=== PATIENT | female | born 1990 | race Caucasian/White ===

== ENCOUNTER → 2016-10-30 | Outpatient (REF) | payer MEDICAID ==
[~2016-10-30] MED LIST: *ANUSOI RE; ACET500C OR; COLA100C2 OR; IBUP600T OR; MILKSUS OR; PRENTAB8 PO
[2016-10-30 13:27] LABS: MEAN CORPUSCULAR HEMOGLOBIN 30.1 pg (27.0-33.0); MEAN CORPUSCULAR HGB CONC 33.8 g/dl (32.0-36.5); MEAN CORPUSCULAR VOLUME 89.2 fl (80.0-96.0); RED CELL DISTRIBUTION WIDTH 12.1 % (11.5-14.5); WHITE BLOOD COUNT 13.9 K/mm3 (4.0-10.0)
[2016-10-30 14:02] LABS: HCG, SERUM QUANTITATIVE 114485 MIU/ML
[2016-10-31 11:40] LABS: HBsAg Prenatal NEGATIVE (NEGATIVE)
[2016-10-31 14:07] LABS: HIV SCRN NEGATIVE (NEGATIVE)
[2016-10-31 14:08] LABS: CONTROL LINE INT CTR LINE PRESENT; HIV SCRN1 NEGATIVE (NEGATIVE)
== END ==
LOC: M LAB REF 12:55
PROVIDERS: ATTEND Advanced Practice Midwife
DX: O36.80X0 Pregnancy with inconclusive fetal viability, not applicable or unspecified (principal); Z36 Encounter for antenatal screening of mother; Z3A.00 Weeks of gestation of pregnancy not specified

== ENCOUNTER → 2016-12-25 | Outpatient (REF) | payer OTHER | LOC: M LAB REF 13:05 | PROVIDERS: ATTEND Advanced Practice Midwife | DX: Z34.82 Encounter for supervision of other normal pregnancy, second trimester (principal) ==

== ENCOUNTER → 2017-01-15 | Outpatient (CLI) | payer OTHER ==
--- NOTE | 2017-01-16 04:38 | REP ---
Clinical: Anatomical evaluation. Comparison: None . Findings: Examination demonstrates a single live intrauterine in cephalic presentation. motion is identified by technologist. Placenta is noted posteriorly and grade zero without evidence for placenta previa or abruption. Amniotic fluid volume is normal. Cervix measures 4.1 cm in length and appears closed. No evidence for nuchal cord. Gestational age by LMP 19 weeks 4 days with SHERIF 06/07/2017 . Gestational age by current measurements 19 weeks 6 days with SHERIF 06/05/2017 . FHR equals 116 beats per minute. BPD 4.4 cm 19 weeks 3 days HC 16.7 cm 19 weeks 3 days AC 14.6 cm 19 weeks 6 days FL 3.3 cm 20 weeks 1 day HL 3.2 cm 20 weeks 5 days HC/AC ratio 1.15 Estimated weight 321 grams ( 58th percentile). Anatomical assessment demonstrates normal structures including cranium, choroid plexus, cavum, cerebellum/posterior fossa, facial features, lungs, four-chamber heart/ventricular outflow tracts, diaphragm, stomach, cord insertion/three-vessel cord, kidneys/bladder, spine, and extremities. Impression: Single live intrauterine in cephalic presentation demonstrating appropriate interval growth. Anatomical assessment is complete and normal. Signed by Karlo Lemus MD 01/16/2017 04:30 A
== END ==
LOC: M RAD 13:19
PROVIDERS: ATTEND Advanced Practice Midwife
DX: Z34.82 Encounter for supervision of other normal pregnancy, second trimester (principal)

== ENCOUNTER → 2017-01-22 | Outpatient (REF) | payer OTHER | LOC: M LAB REF 12:43 | PROVIDERS: ATTEND Advanced Practice Midwife | DX: Z34.82 Encounter for supervision of other normal pregnancy, second trimester (principal) ==

== ENCOUNTER → 2017-02-19 | Outpatient (REF) | payer OTHER | LOC: M LAB REF 12:04 | PROVIDERS: ATTEND Advanced Practice Midwife | DX: Z34.82 Encounter for supervision of other normal pregnancy, second trimester (principal) ==

== ENCOUNTER → 2017-03-04 | Outpatient (CLI) | payer OTHER ==
[~2017-03-04] MED LIST changes: +ACET50TA PO; +IBUP-1114 PO; +KEFL500C17 PO; +NYST5000 PO; +PREN1CHW4 PO; +PYRI1TAB5 PO; +VALT1TAB PO
[2017-03-04 12:00] LABS: MEAN CORPUSCULAR HEMOGLOBIN 31.1 pg (27.0-33.0); MEAN CORPUSCULAR HGB CONC 34.1 g/dl (32.0-36.5); MEAN CORPUSCULAR VOLUME 91.2 fl (80.0-96.0); RED CELL DISTRIBUTION WIDTH 12.4 % (11.5-14.5); WHITE BLOOD COUNT 15.2 K/mm3 (4.0-10.0)
== END ==
LOC: M LAB 10:09
PROVIDERS: ATTEND Advanced Practice Midwife
DX: Z34.82 Encounter for supervision of other normal pregnancy, second trimester (principal)

== ENCOUNTER 2017-04-01 12:56 | Outpatient (CLI) | payer OTHER ==
[~2017-04-01] VITALS: Ht 162.6 cm; Wt 64.0 kg
[~2017-04-01 12:56] MED LIST changes: -ACET50TA PO; -IBUP-1114 PO; -KEFL500C17 PO; -NYST5000 PO; -PREN1CHW4 PO; -PYRI1TAB5 PO; -VALT1TAB PO
[2017-04-01 13:12] VITALS: BP 107/65
[2017-04-01] MEDS ORDERED: PREN1CHW4 PO (13:18)
[2017-04-01] MEDS ORDERED: LIDOCAINE 1% SDV 5 ML VIAL SC ONE (14:00)
[2017-04-01] MEDS ORDERED: LIDOCAINE 1% SDV 5 ML VIAL XX ONE (14:00)
[2017-04-01] MEDS ORDERED: cefTRIAXone SOD 1 GM VIAL (J0696) IM ONE (14:00)
[2017-04-01 15:42] VITALS: BP 104/59
[2017-04-01 16:57] VITALS: BP 92/51
[2017-04-01 17:39] VITALS: BP 109/56
[2017-04-01] MEDS ORDERED: KEFL500C17 PO (17:47)
== END 2017-04-01 17:47 | disposition home or self-care (01) ==
LOC: M LDO 12:56
PROVIDERS: ATTEND Obstetrics & Gynecology
DX: O99.89 Other specified diseases and conditions complicating pregnancy, childbirth and the puerperium (principal); Z3A.30 30 weeks gestation of pregnancy; N39.0 Urinary tract infection, site not specified; M25.551 Pain in right hip

== ENCOUNTER → 2017-04-02 | Outpatient (REF) | payer OTHER ==
[~2017-04-02] MED LIST changes: +ACET50TA PO; +IBUP-1114 PO; +KEFL500C17 PO; +NYST5000 PO; +PREN1CHW4 PO; +PYRI1TAB5 PO; +VALT1TAB PO
== END ==
LOC: M LAB REF 12:35
PROVIDERS: ATTEND Advanced Practice Midwife
DX: Z34.83 Encounter for supervision of other normal pregnancy, third trimester (principal); Z3A.00 Weeks of gestation of pregnancy not specified

== ENCOUNTER → 2017-05-12 | Outpatient (REF) | payer OTHER | LOC: M LAB REF 16:40 | PROVIDERS: ATTEND Advanced Practice Midwife | DX: Z34.83 Encounter for supervision of other normal pregnancy, third trimester (principal) ==

== ENCOUNTER 2017-06-03 21:56 | Inpatient (IN) | payer OTHER ==
[~2017-06-03] VITALS: Ht 162.6 cm; Wt 66.8 kg
[~2017-06-03 21:56] MED LIST changes: -ACET50TA PO; -IBUP-1114 PO; -NYST5000 PO; -PYRI1TAB5 PO; -VALT1TAB PO
[2017-06-03 22:22] VITALS: BP 116/67
[2017-06-03] MEDS ORDERED: LACTATED RINGER'S 1000 ML IV STA (22:32)
[2017-06-03] MEDS ORDERED: PYRI1TAB5 PO (22:58)
[2017-06-03] MEDS ORDERED: NYST5000 PO (22:58)
[2017-06-03] MEDS ORDERED: VALT1TAB PO (22:58)
[2017-06-03] MEDS ORDERED: KEFL500C17 PO (22:59)
[2017-06-03 23:27] LABS: MEAN CORPUSCULAR HEMOGLOBIN 27.8 pg (27.0-33.0); MEAN CORPUSCULAR HGB CONC 32.3 g/dl (32.0-36.5); MEAN CORPUSCULAR VOLUME 85.9 fl (80.0-96.0); RED CELL DISTRIBUTION WIDTH 13.8 % (11.5-14.5); WHITE BLOOD COUNT 13.9 10^3/uL (4.0-10.0)
[2017-06-03] MEDS: LR 1,000 ML IV SCH (23:30)
[2017-06-04] VITALS (36 sets, daily range): BP systolic 83–114; BP diastolic 46–75
[2017-06-04] MEDS ORDERED: OXYTOCIN DRIP 30 UNITS in APPROPRIATE DILUENT 1 EA IV SCH ×2
[2017-06-04] MEDS ORDERED: FENTANYL 2MCG/ML ROPIVACAINE 0.2% IN 0.9% NACL 200ML IVBAG As Ordered ONE (00:56)
[2017-06-04] MEDS ORDERED: EPIDURAL/PCA KEYS XX PRN (01:45)
[2017-06-04] MEDS ORDERED: FENTANYL/ROPIVACAINE/NACL BAG 200 ML EPIDURAL SCH (01:45)
[2017-06-04] MEDS ORDERED: NALOXONE INJ 0.4 MG/1 ML VIAL (J2310) IV PRN (01:45)
[2017-06-04] MEDS ORDERED: ePHEDrine SULFATE 25 MG/5 ML(5MG/ML) SYRINGE IV PRN (01:45)
[2017-06-04] MEDS ORDERED: LACTATED RINGER'S 1000 ML IV PRN (01:45)
[2017-06-04] MEDS ORDERED: diphenhydrAMINE INJ 50MG/ML VIAL (J1200) IV PRN (01:45)
[2017-06-04] MEDS ORDERED: EPIDURAL COMMENT XX SCH (01:45)
[2017-06-04] MEDS ORDERED: ONDANSETRON 4MG/2ML VIAL (J2405) IV PRN (01:45)
[2017-06-04] MEDS ORDERED: REFRIGERATOR IV KEYS XX PRN (01:45)
[2017-06-04] MEDS: LR 1,000 ML IV SCH (01:48)
[2017-06-04] MEDS ORDERED: LIDOCAINE 1% MDV INJ 50 ML VIAL As Ordered ONE (02:59)
[2017-06-04] MEDS ORDERED: MEASLES,MUMPS,RUBELLA VACCINE INJ (MMR-II) (90707) SC SCH (06:15)
[2017-06-04] MEDS ORDERED: DOCUSATE SODIUM 100 MG CAP PO PRN (06:15)
[2017-06-04] MEDS ORDERED: METHYLERGONOVINE MALEATE 0.2 MG TAB PO PRN (06:15)
[2017-06-04] MEDS ORDERED: IBUPROFEN 800 MG TAB PO PRN (06:15)
[2017-06-04] MEDS ORDERED: RHOGAM 300 MCG (1500 IU) INJ (J2790) IM SCH (06:15)
[2017-06-04] MEDS ORDERED: ACETAMINOPHEN 500 MG TAB PO PRN (06:15)
[2017-06-04] MEDS ORDERED: DIBUCAINE 1% OINTMENT 30GM TOP PRN (06:15)
[2017-06-04 06:29] LABS: CORD GAS ABE V -3.3; CORD GAS HCO3 V 23.8 MEQ/L; CORD GAS O2 SAT V 78.6 %; CORD GAS PCO2 V 50.1 mmHg; CORD GAS PH V 7.295 UNITS; CORD GAS SBC V 21.2 MEQ/L; CORD GAS TCO2 V 25.4 MEQ/L
[2017-06-04 06:33] LABS: CORD GAS ABE A -4.9; CORD GAS HCO3 A 23.7 MEQ/L; CORD GAS O2 SAT A 30.1 %; CORD GAS PCO2 A 57.5 mmHg; CORD GAS PH A 7.233 UNITS; CORD GAS PO2 A 14.2 mmHg; CORD GAS SBC A 18.8 MEQ/L; CORD GAS TCO2 A 25.5 MEQ/L
--- NOTE | 2017-06-04 06:45 | HPE ---
DATE OF ADMISSION: 06/03/2017 HISTORY OF PRESENT ILLNESS: Shauna is a 27-year-old female 3, para 2-0-0-2, with an estimated date of confinement (EDC) of 06/07/2017, estimated gestational age (EGA) 39-4/7 weeks gestation, who presented to labor and delivery with complaints of contractions. Upon evaluation in labor and delivery, she was found to be in early labor. The patient was originally scheduled for an induction. At this point, decision was made to admit the patient. Her records reviewed. LABORATORIES: Blood type is A positive, rubella immune, hepatitis negative, HIV negative, GC chlamydia negative. The patient had a history of positive Trichomonas for which she had a test of cure on 01/12 and now is negative. The patient also had positive drug screen on 12/25 for marijuana. GBS is negative. PAST MEDICAL HISTORY: Denies. PAST SURGICAL HISTORY: Dilation and curettage (D and C). SOCIAL HISTORY: The patient is single. Denies any alcohol. She is a current smoker; smokes approximately a half pack of cigarettes per day, and has used marijuana in the past. Reported to have quit. MEDICATIONS: vitamin. 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 No current outbreak during this . ALLERGIES: No known drug allergy. PHYSICAL EXAMINATION: Normal-appearing female in no acute distress. ABDOMEN: Soft, nontender, nondistended. EXTREMITIES: No clubbing, cyanosis or edema. VAGINAL EXAMINATION: She is 4 cm, 100% effaced, fetus at -2 station. Tracing reviewed, category one tracing, with contractions every 4-5 minutes. ASSESSMENT: 1. Intrauterine at 39-4/7 weeks gestation. 2. In Early labor. 3. Group B streptococcus (GBS) negative. PLAN: Admit to labor and delivery. Routine labs sent. Anticipate delivery.
[2017-06-04] MEDS: PRENATAL VITAMINS CHEWABLE TABLET PO SCH (09:00)
--- NOTE | 2017-06-04 10:06 | DN ---
DATE OF CONSULTATION: 06/04/2017 Shauna is a 27-year-old female, 3, para 2-0-0-2, who was admitted at 39-4/7 weeks gestation in labor. She underwent artificial rupture of membranes and Pitocin augmentation, progressed to fully dilated, delivered a live male infant in left occiput anterior position with a nuchal cord over an intact perineum. scores of 8 and 9. weight 5 pounds 15 ounces. Placenta delivered spontaneously intact. Three-vessel cord. The perineum, vagina and cervix inspected. No laceration noted. Estimated blood loss 250 mL. Both mother and baby in stable condition.
[2017-06-05 05:55] VITALS: BP 95/55
[2017-06-05] MEDS: PRENATAL VITAMINS CHEWABLE TABLET PO SCH (07:29)
[2017-06-05] MEDS ORDERED: medroxyPROGESTERone ACET IM SUSP 150 MG/ML VIAL (J1050) IM ONE (09:00)
[2017-06-05 18:17] VITALS: BP 108/58
[2017-06-06 06:11] VITALS: BP 98/57
[2017-06-06] MEDS ORDERED: medroxyPROGESTERone ACET IM SUSP 150 MG/ML VIAL (J1050) IM ONE (09:00)
[2017-06-06] MEDS ORDERED: ACET50TA PO (09:29)
[2017-06-06] MEDS ORDERED: IBUP-1114 PO (09:29)
[2017-06-06] MEDS: PRENATAL VITAMINS CHEWABLE TABLET PO SCH (09:51)
== END 2017-06-06 12:25 | disposition home or self-care (01) | DRG 560 ==
LOC: M LDO 21:56 → M LDI 22:33 → M OBS 06-04 08:19
PROVIDERS: ADMIT Obstetrics & Gynecology; ATTEND Obstetrics & Gynecology
PROC: 10E0XZZ Delivery of Products of Conception, External Approach (ICD-10-PCS; principal; 2017-06-04)
PROC: 10907ZC Drainage of Amniotic Fluid, Therapeutic from Products of Conception, Via Natural or Artificial Opening (ICD-10-PCS; 2017-06-04)
DX: O99.334 Smoking (tobacco) complicating childbirth (principal); F17.200 Nicotine dependence, unspecified, uncomplicated; O69.82X0 Labor and delivery complicated by other cord entanglement, without compression, not applicable or unspecified; Z3A.39 39 weeks gestation of pregnancy

== ENCOUNTER 2017-07-24 09:57 | Day surgery (SDC) | payer OTHER ==
[~2017-07-24] VITALS: Ht 162.6 cm; Wt 60.6 kg
[~2017-07-24 09:57] MED LIST changes: +ACET50TA PO; +IBUP-1114 PO; +NYST5000 PO; +PYRI1TAB5 PO; +VALT1TAB PO
[2017-07-24] MEDS ORDERED: LR 1,000 ML IV ONE (10:00)
[2017-07-24 10:41] LABS: MEAN CORPUSCULAR HEMOGLOBIN 27.1 pg (27.0-33.0); MEAN CORPUSCULAR HGB CONC 32.2 g/dl (32.0-36.5); MEAN CORPUSCULAR VOLUME 84.1 fl (80.0-96.0); PLATELET COUNT, AUTOMATED 326 10^3/uL (150-450); RED CELL DISTRIBUTION WIDTH 15.5 % (11.5-14.5); WHITE BLOOD COUNT 11.7 10^3/uL (4.0-10.0)
[2017-07-24 11:06] LABS: CONTROL LINE HCG INT CTR LINE PRESENT
[2017-07-24] MEDS ORDERED: BUPIVACAINE/EPIN 0.25% 30 ML VIAL As Ordered ONE (11:54)
[2017-07-24] MEDS ORDERED: ACETAMINOPHEN 650 MG SUPP As Ordered ONE (11:54)
[2017-07-24] MEDS ORDERED: PERC5TAB12 PO (12:14)
[2017-07-24] MEDS ORDERED: fentaNYL 100 MCG/2 ML INJECTION (J3010) As Ordered ONE (12:27)
[2017-07-24] MEDS ORDERED: MIDAZOLAM INJ 2 MG/2 ML VIAL (J2250) As Ordered ONE (12:27)
[2017-07-24] MEDS ORDERED: ePHEDrine SULFATE 25 MG/5 ML(5MG/ML) SYRINGE As Ordered ONE (12:35)
[2017-07-24] MEDS ORDERED: PHENYLephrine HCL 500 MCG/5 ML (100MCG/ML) SYRINGE (J2370) As Ordered ONE (12:35)
[2017-07-24] MEDS ORDERED: ROCURONIUM BROMIDE 50 MG/5 ML VIAL/SYRINGE As Ordered ONE (12:35)
[2017-07-24] MEDS ORDERED: dexameTHASONE 4 MG/ML 1ML VIAL (J1100) As Ordered ONE (12:35)
[2017-07-24] MEDS ORDERED: PROPOFOL 200 MG/20 ML VIAL As Ordered ONE (12:35)
[2017-07-24] MEDS ORDERED: GLYCOPYRROLATE INJ 0.2 MG/ML 2 ML VIAL As Ordered ONE ×2 (12:36→12:39)
[2017-07-24] MEDS ORDERED: NEOSTIGMINE 10 MG/10 ML VIAL (J2710) As Ordered ONE (12:36)
[2017-07-24] MEDS ORDERED: ONDANSETRON 4MG/2ML VIAL (J2405) As Ordered ONE (12:36)
[2017-07-24] MEDS ORDERED: KETOROLAC 60 MG/2 ML VIAL (J1885) As Ordered ONE ×2 (12:37→13:38)
[2017-07-24] MEDS ORDERED: HYDROmorphone HCL 2 MG/ML 1ML VIAL (J1170) As Ordered ONE (12:39)
[2017-07-24] MEDS ORDERED: diphenhydrAMINE INJ 50MG/ML VIAL (J1200) As Ordered ONE (12:49)
[2017-07-24] MEDS ORDERED: METOCLOPRAMIDE INJ 10MG/2ML VIAL (J2765) As Ordered ONE (12:49)
[2017-07-24] MEDS ORDERED: PERCOCET 5MG/325MG TAB PO PRN (13:15)
[2017-07-24] MEDS ORDERED: ONDANSETRON 4MG/2ML VIAL (J2405) IV PRN (13:15)
[2017-07-24] MEDS ORDERED: LR 1,000 ML IV SCH (13:15)
[2017-07-24] MEDS: fentaNYL 100 MCG/2 ML INJECTION (J3010) IV PRN ×4 (13:20→13:35)
[2017-07-24] MEDS ORDERED: LIDOCAINE 2% INJ 100 MG/5 ML SDV (FOR ANES.) As Ordered ONE (13:30)
[2017-07-24] MEDS: PERCOCET 5MG/325MG TAB PO PRN ×2 (13:45→14:05)
[2017-07-24 14:45] VITALS: BP 124/73
--- NOTE | 2017-07-24 17:50 | RO ---
DATE OF PROCEDURE: 07/24/2017 Shauna is a 27-year-old female multiparous. She desires permanent tubal sterilization. After extensive counseling in the office and reviewing the risks and benefits of tubal ligation, the patient decided to proceed with bilateral tubal ligation via a laparoscopic approach. PREOPERATIVE DIAGNOSIS: Multiparity, desires permanent tubal sterilization. POSTOPERATIVE DIAGNOSIS: Multiparity, desires permanent tubal sterilization. PROCEDURE: Laparoscopic bilateral tubal ligation using Filshie clip. SURGEON: Dr. Jerry Cornell KNIFER UP: ANESTHESIA: General. COMPLICATIONS: None. ESTIMATED BLOOD LOSS: Less than 10 mL. DESCRIPTION OF PROCEDURE: After re-visiting the patient in the holding area and reaffirming the informed consent, the patient was taken to the operating room where under general anesthesia she was then draped and prepped in the usual sterile fashion in the dorsal lithotomy position. Straight catheter of the bladder was performed for approximately 200cc. A sponge stick was placed in the vagina for uterine manipulation. I then turned my attention to the abdomen where a 5 mm infraumbilical incision was made. Using the Veress needle, the abdomen was insufflated with CO2 gas to approximately 3.5 liters. We then placed a 5 mm Xcel trocar as well as the laparoscope under direct visualization. Then, an 8 mm right lateral port was placed. The patient was placed in Trendelenburg. Pelvis inspected. Bilateral fallopian tube identified with the fimbriated end. At this point, a Filshie clip was applied 2 cm away from the cornual area on each tube. Excellent hemostasis was noted. Pelvis copiously irrigated with normal saline and suctioned out. All instruments removed, and the laparoscopic ports were closed using Dermabond. 0.25% Marcaine was placed at the operative site for postoperative pain. The patient tolerated the procedure well, and she was then transferred to the recovery room in stable condition. Copy To: [facility] HOSPITALMarylin
[2017-07-24] MEDS ORDERED: IBUPROFEN 800 MG TAB PO SCH (19:00)
== END 2017-07-24 15:00 | disposition home or self-care (01) ==
LOC: M SDC 09:57
PROVIDERS: ATTEND Obstetrics & Gynecology
DX: Z30.2 Encounter for sterilization (principal); F17.210 Nicotine dependence, cigarettes, uncomplicated

== ENCOUNTER → 2017-11-10 | Outpatient (REF) | payer OTHER ==
[2017-11-10 19:23] LABS: HEMATOCRIT 41.8 % (36.0-47.0); HEMOGLOBIN 13.8 g/dl (12.0-16.0); MEAN CORPUSCULAR HEMOGLOBIN 28.7 pg (27.0-33.0); MEAN CORPUSCULAR VOLUME 86.9 fl (80.0-96.0); PLATELET COUNT, AUTOMATED 315 10^3/uL (150-450); RED BLOOD COUNT 4.81 10^6/uL (4.00-5.40); RED CELL DISTRIBUTION WIDTH 12.3 % (11.5-14.5); WHITE BLOOD COUNT 11.2 10^3/uL (4.0-10.0)
[2017-11-10 19:38] LABS: LUTEINIZING HORMONE 5.6 mIU/mL
[2017-11-10 19:39] LABS: FOLLICLE STIMULATING HORMONE 8.4 mIU/mL; FREE T4 1.07 NG/DL (0.76-1.46)
[2017-11-11 07:02] LABS: HCG, SERUM QUANTITATIVE < 1.0 MIU/ML
== END ==
LOC: M LAB REF 17:24
DX: N92.1 Excessive and frequent menstruation with irregular cycle (principal)

== ENCOUNTER → 2017-12-24 | Outpatient (REF) | payer OTHER ==
[2017-12-24 18:21] LABS: HEMATOCRIT 45.1 % (36.0-47.0); HEMOGLOBIN 14.6 g/dl (12.0-15.5); MEAN CORPUSCULAR HEMOGLOBIN 29.1 pg (27.0-33.0); MEAN CORPUSCULAR HGB CONC 32.4 g/dl (32.0-36.5); MEAN CORPUSCULAR VOLUME 89.8 fl (80.0-96.0); PLATELET COUNT, AUTOMATED 285 10^3/uL (150-450); RED BLOOD COUNT 5.02 10^6/uL (4.00-5.40); RED CELL DISTRIBUTION WIDTH 12.9 % (11.5-14.5); WHITE BLOOD COUNT 9.7 10^3/uL (4.0-10.0)
[2017-12-24 18:51] LABS: ALBUMIN 4.2 GM/DL (3.2-5.2); ALKALINE PHOSPHATASE 75 U/L (45-117); ALT/SGPT 18 U/L (12-78); ANION GAP 5 MEQ/L (8-16); AST/SGOT 14 U/L (7-37); BILIRUBIN,TOTAL 0.2 MG/DL (0.2-1.0); BLOOD UREA NITROGEN 7 MG/DL (7-18); CALCIUM LEVEL 9.1 MG/DL (8.5-10.1); CARBON DIOXIDE LEVEL 29 MEQ/L (21-32); CHLORIDE LEVEL 107 MEQ/L (98-107); CHOLESTEROL LEVEL 131 MG/DL (<200); CHOLESTEROL RISK RATIO 3.852 (<5); FREE T4 0.96 NG/DL (0.76-1.46); GLOMERULAR FILTRATION RATE > 60.0 (>60); GLUCOSE, FASTING 71 MG/DL (70-100); HDL CHOLESTEROL 34 MG/DL (>40); LDL CHOLESTEROL 79.4 MG/DL (<100); NON-HDL-C 97 MG/DL; POTASSIUM SERUM 4.5 MEQ/L (3.5-5.1); SODIUM LEVEL 141 MEQ/L (136-145); THYROID STIMULATING HORMONE 0.493 uIU/ML (0.358-3.740); TOTAL PROTEIN 7.7 GM/DL (6.4-8.2); TRIGLYCERIDES LEVEL 88 MG/DL (<150)
[2017-12-29 00:08] LABS: VITAMIN D 1,25 DIHYDROXY 30.4 pg/mL (19.9-79.3)
== END ==
LOC: M LAB REF 17:59
DX: Z01.419 Encounter for gynecological examination (general) (routine) without abnormal findings (principal)
CPT/HCPCS: 84443

== ENCOUNTER → 2018-03-04 | Outpatient (CLI) | payer MEDICAID | LOC: M OUTALCOH 12:53 | DX: Z53.8 Procedure and treatment not carried out for other reasons (principal) ==

== ENCOUNTER 2018-03-15 11:18 | Outpatient (RCR) | payer MEDICAID | END 2018-04-06 | LOC: M OUTALCOH 03-23 16:00 | DX: F12.20 Cannabis dependence, uncomplicated (principal); F17.200 Nicotine dependence, unspecified, uncomplicated ==

== ENCOUNTER 2018-05-11 16:00 | Outpatient (RCR) | payer MEDICAID | END 2018-06-06 | LOC: M OUTALCOH 05-17 14:00 | DX: F12.20 Cannabis dependence, uncomplicated (principal); F17.200 Nicotine dependence, unspecified, uncomplicated ==

== ENCOUNTER 2018-06-07 11:18 | Outpatient (RCR) | payer MEDICAID | END 2018-07-07 | LOC: M OUTALCOH 06-11 13:00 | DX: F12.20 Cannabis dependence, uncomplicated (principal); F17.200 Nicotine dependence, unspecified, uncomplicated ==

== ENCOUNTER 2018-07-09 15:02 | Outpatient (RCR) | payer MEDICAID | END 2018-08-06 | LOC: M OUTALCOH 07-13 11:00 | DX: F12.20 Cannabis dependence, uncomplicated (principal); F17.200 Nicotine dependence, unspecified, uncomplicated ==

== ENCOUNTER → 2018-11-05 | Outpatient (REF) | payer OTHER ==
[~2018-11-05] MED LIST changes: -ACET50TA PO; +MAPA500T2 PO; +PERC5TAB12 PO
[2018-11-05 20:55] LABS: CHLAMYDIA DNA AMPLIFICATION NEGATIVE (NEGATIVE); GC DNA AMPLIFICATION NEGATIVE (NEGATIVE)
== END ==
LOC: M LAB REF 16:46
PROVIDERS: ATTEND Nurse Practitioner Primary Care
DX: R30.0 Dysuria (principal)

== ENCOUNTER → 2019-05-18 | Outpatient (CLI) | payer MEDICAID, SELFPAY | LOC: M OUTALCOH 08:42 | PROVIDERS: ATTEND Psychiatry & Neurology Psychiatry | DX: Z03.89 Encounter for observation for other suspected diseases and conditions ruled out (principal) ==

== ENCOUNTER 2019-06-01 15:16 | Outpatient (RCR) | payer SELFPAY | END 2019-06-06 | LOC: M OUTALCOH 15:16 | PROVIDERS: ATTEND Psychiatry & Neurology Psychiatry | DX: F12.20 Cannabis dependence, uncomplicated (principal); F17.200 Nicotine dependence, unspecified, uncomplicated ==

== ENCOUNTER → 2019-07-06 | Outpatient (REF) | payer MEDICAID ==
[2019-07-06 11:20] LABS: BASO % 0.3 % (0.0-1.0); EOS # 0.2 10^3/uL (0.0-0.5); EOS % 1.7 % (0.0-3.0); HEMATOCRIT 45.6 % (36.0-47.0); HEMOGLOBIN 14.5 g/dl (12.0-15.5); LYMPH # 4.1 10^3/uL (1.5-5.0); LYMPH % 32.1 % (24.0-44.0); MEAN CORPUSCULAR HEMOGLOBIN 29.7 pg (27.0-33.0); MEAN CORPUSCULAR HGB CONC 31.8 g/dl (32.0-36.5); MEAN CORPUSCULAR VOLUME 93.3 fl (80.0-96.0); MONO # 0.9 10^3/uL (0.0-0.8); MONO % 7.1 % (0.0-5.0); NEUTROPHILS # 7.4 10^3/uL (1.5-8.5); NEUTROPHILS % 58.3 % (36.0-66.0); PLATELET COUNT, AUTOMATED 281 10^3/uL (150-450); RED BLOOD COUNT 4.89 10^6/uL (4.00-5.40); WHITE BLOOD COUNT 12.7 10^3/uL (4.0-10.0)
[2019-07-06 11:21] LABS: ALBUMIN 3.8 GM/DL (3.2-5.2); ALT/SGPT 13 U/L (12-78); BILIRUBIN,TOTAL 0.4 MG/DL (0.2-1.0); BLOOD UREA NITROGEN 8 MG/DL (7-18); CALCIUM LEVEL 8.9 MG/DL (8.5-10.1); CARBON DIOXIDE LEVEL 26 MEQ/L (21-32); CHLORIDE LEVEL 110 MEQ/L (98-107); CHOLESTEROL LEVEL 111 MG/DL (<200); CHOLESTEROL RISK RATIO 3.171 (<5); CREATININE FOR GFR 0.55 MG/DL (0.55-1.30); GLOMERULAR FILTRATION RATE > 60.0 (>60); GLUCOSE, FASTING 89 MG/DL (70-100); HDL CHOLESTEROL 35 MG/DL (>40); LDL CHOLESTEROL 46 MG/DL (<100); NON-HDL-C 76 MG/DL; POTASSIUM SERUM 4.1 MEQ/L (3.5-5.1); SODIUM LEVEL 139 MEQ/L (136-145); TOTAL PROTEIN 7.4 GM/DL (6.4-8.2); TRIGLYCERIDES LEVEL 151 MG/DL (<150)
[2019-07-06 11:24] LABS: TOTAL 25(OH) VITAMIN D 17.2 NG/ML (30.0-100.0)
== END ==
LOC: M LAB REF 10:02
PROVIDERS: ATTEND Nurse Practitioner Family
DX: Z00.01 Encounter for general adult medical examination with abnormal findings (principal)

== ENCOUNTER → 2019-07-13 | Outpatient (REF) | payer MEDICAID ==
[2019-07-13 12:49] LABS: AMORPHOUS SEDIMENT SMALL (NEGATIVE); APPEARANCE, URINE TURBID (CLEAR); BACTERIA, URINE AUTO 1+ (NEGATIVE); BILIRUBIN, URINE AUTO NEGATIVE (NEGATIVE); BLOOD, URINE BLOOD 2+ (NEGATIVE); COLOR, URINE AMBER (YELLOW); GLUCOSE, URINE (UA) AUTO NEGATIVE (NEGATIVE); KETONE, URINE AUTO NEGATIVE (NEGATIVE); LEUKOCYTE ESTERASE, URINE AUTO TRACE (NEGATIVE); MUCUS, URINE LARGE (NEGATIVE); NITRITE, URINE AUTO NEGATIVE (NEGATIVE); PROTEIN, URINE AUTO NEGATIVE (NEGATIVE); RBC, URINE AUTO 7 /HPF (0-3); SQUAMOUS EPITHELIAL CELL UR AU 7 /HPF (0-6); UROBILINOGEN, URINE AUTO 0.2 mg/dL (0.0-2.0); WBC, URINE AUTO 0 /HPF (0-3)
[2019-07-13 14:06] LABS: CHLAMYDIA DNA AMPLIFICATION NEGATIVE (NEGATIVE); GC DNA AMPLIFICATION NEGATIVE (NEGATIVE)
== END ==
LOC: M LAB REF 12:33
PROVIDERS: ATTEND Nurse Practitioner Family
DX: R10.31 Right lower quadrant pain (principal)

== ENCOUNTER 2019-10-29 15:21 | Emergency (ER) | payer MEDICAID, SELFPAY ==
[~2019-10-29] VITALS: Ht 162.6 cm; Wt 64.3 kg
[2019-10-29] MEDS ORDERED: KETOROLAC TROMETHAMINE 10 MG TAB PO ONE (15:45)
[2019-10-29] MEDS ORDERED: PAXI20TA29 PO (15:59)
[2019-10-29] MEDS ORDERED: HYDR50CA2 (15:59)
[2019-10-29] MEDS ORDERED: IBUP80TA PO (16:06)
--- NOTE | 2019-10-29 16:08 | REP ---
Left knee 5-year : There is no fracture or dislocation. Mineralization and joint spaces are normal. There are no calcifications or foreign bodies. There is no effusion. Impression: Negative left knee . Electronically Signed by Jonas Salgado MD 10/29/2019 04:00 P
[2019-10-29 16:12] VITALS: BP 109/65
== END 2019-10-29 16:18 | disposition home or self-care (01) ==
LOC: M ED 15:21
DX: S76.312A Strain of muscle, fascia and tendon of the posterior muscle group at thigh level, left thigh, initial encounter (principal); W00.0XXA Fall on same level due to ice and snow, initial encounter; Y92.410 Unspecified street and highway as the place of occurrence of the external cause; Y93.89 Activity, other specified; Y99.8 Other external cause status; F17.210 Nicotine dependence, cigarettes, uncomplicated; Z79.899 Other long term (current) drug therapy

== ENCOUNTER 2019-12-17 15:21 | Emergency (ER) | payer MEDICAID, SELFPAY ==
[~2019-12-17] VITALS: Ht 162.6 cm; Wt 63.2 kg
[~2019-12-17 15:21] MED LIST changes: +HYDR50CA2; +IBUP80TA PO; +PAXI20TA29 PO
[2019-12-17 15:23] VITALS: BP 143/73
[2019-12-17] MEDS ORDERED: VIST50CA PO (15:29)
== END 2019-12-17 16:17 | disposition home or self-care (01) ==
LOC: M ED 15:21
DX: J06.9 Acute upper respiratory infection, unspecified (principal); D69.6 Thrombocytopenia, unspecified; F17.200 Nicotine dependence, unspecified, uncomplicated; Z79.899 Other long term (current) drug therapy

== ENCOUNTER 2020-04-05 14:23 | Emergency (ER) | payer MEDICAID, OTHER ==
[~2020-04-05 14:23] MED LIST changes: +VIST50CA PO
== END 2020-04-05 15:45 | disposition home or self-care (01) ==
LOC: M ED 14:23
DX: S60.221A Contusion of right hand, initial encounter (principal); W22.8XXA Striking against or struck by other objects, initial encounter; Y92.018 Other place in single-family (private) house as the place of occurrence of the external cause; Z79.899 Other long term (current) drug therapy

== ENCOUNTER → 2020-06-08 | Outpatient (REF) | payer OTHER | LOC: M LAB REF 19:31 | PROVIDERS: ATTEND Nurse Practitioner Family | DX: R30.0 Dysuria (principal); Z20.2 Contact with and (suspected) exposure to infections with a predominantly sexual mode of transmission ==

== ENCOUNTER 2020-10-15 16:30 | Emergency (ER) | payer OTHER ==
[~2020-10-15] VITALS: Ht 162.6 cm; Wt 49.3 kg
[2020-10-15] MEDS ORDERED: LIDOCAINE 1% MDV 20ML VIAL SC ONE (19:30)
[2020-10-15] MEDS ORDERED: CEPHALEXIN 500 MG CAP PO ONE (19:30)
[2020-10-15] MEDS ORDERED: ACETAMINOPHEN 500 MG TAB PO ONE (20:15)
[2020-10-15] MEDS ORDERED: cefTRIAXone 500MG VIAL (J0696 PER 250MG) IM ONE (20:15)
[2020-10-15] MEDS ORDERED: LIDOCAINE 1% SDV 5ML VIAL DILUENT ONE (20:15)
[2020-10-15] MEDS ORDERED: DOXY100C37 PO (20:21)
[2020-10-15 20:36] VITALS: BP 109/58
[2020-10-15 22:30] LABS: CHLAMYDIA DNA AMPLIFICATION NEGATIVE (NEGATIVE); GC DNA AMPLIFICATION POSITIVE (NEGATIVE)
== END 2020-10-15 20:48 | disposition home or self-care (01) ==
LOC: M ED 16:30
DX: S61.012A Laceration without foreign body of left thumb without damage to nail, initial encounter (principal); Z20.2 Contact with and (suspected) exposure to infections with a predominantly sexual mode of transmission; W26.0XXA Contact with knife, initial encounter; Y92.099 Unspecified place in other non-institutional residence as the place of occurrence of the external cause; Y93.89 Activity, other specified; Y99.9 Unspecified external cause status; F17.200 Nicotine dependence, unspecified, uncomplicated
CPT/HCPCS: 12001; 81001; 87088; 87186; 87661; 96372; 99284; J0696